=== PATIENT | male | born 1985 | race Hispanic/Latino ===

== ENCOUNTER 2021-12-03 13:12 | Outpatient (CLI) | payer OTHER, MEDICAID | END 2021-12-03 13:13 | disposition home or self-care (01) | LOC: CSHULT 13:12 | PROVIDERS: ATTEND Student in an Organized Health Care Education/Training Program | DX: R74.01 Elevation of levels of liver transaminase levels (principal); K76.0 Fatty (change of) liver, not elsewhere classified | CPT/HCPCS: 76700 ==